=== PATIENT | female | born 1945 | race Caucasian/White ===

== ENCOUNTER 2018-12-06 11:58 | Emergency (ER) | payer MEDICARE ==
[2018-12-06] MEDS ORDERED: Sodium Chloride 0.9% 10 ML Syringe FLUSH PRN (12:02)
[2018-12-06] MEDS ORDERED: Propofol 200 MG/20 ML SDV IVPUSH ONE (12:02)
--- NOTE | 2018-12-06 12:52 | EDM.PDOC ---
ED HPI GENERAL MEDICAL PROBLEM - General Chief Complaint: Upper Extremity Injury/Pain Stated Complaint: FALL VIA NORTH Time Seen by Provider: 12/06/18 12:05 Source of Information: Reports: Patient, EMS History Limitations: Reports: No Limitations - History of Present Illness INITIAL COMMENTS - FREE TEXT/NARRATIVE: 73-year-old healthy female was coming out of the clinic which she stumbled on the sidewalk injuring her left arm. She has an obvious deformity and significant pain of the left elbow. Just a small abrasion on the right anterior knee, no bony tenderness of the leg and no other injury. Onset: Sudden Duration: Hour(s): (Within the last hour) Location: Reports: Upper Extremity, Right Associated Symptoms: Reports: No Other Symptoms Left Elbow Pain Score (Numeric/FACES): 7 - Related Data Allergies Allergy/AdvReac Type Severity Reaction Status Date / Time No Known Allergies Allergy Verified 01/01/16 06:54 Home Meds: Home Meds Aspirin 81 mg PO DAILY 12/27/15 [History] Azelastine [Astelin Nasal Soln] 2 spray NASBOTH DAILY 12/27/15 [History] Calcium Carb/Vitamin D3/Vit K1 [Calcium + Vit D & K Chew] 3 tab PO DAILY [History] Gluc Silva 2KCl/Chondr/Vit C/Lorenzo [Glucosamine-Chondr Complex] 2 tab PO DAILY 12/26 [History] Hydrochlorothiazide/Lisinopril [Lisinopril/HCTZ 20-12.5 MG] 12.5 - 20 mg PO DAILY 12/27/15 [History] Multivitamin [Multivitamins] 1 tab PO DAILY 12/27/15 [History] Omeprazole Magnesium [Prilosec Otc] 20 mg PO DAILY 12/27/15 [History] atorvaSTATin [Lipitor] 20 mg PO DAILY 12/27/15 [History] Past Medical History HEENT History: Reports: Allergic Rhinitis, Cataract, Impaired Vision, Other ( See Below) Other HEENT History: Amblyopia left eye Cardiovascular History: Reports: High Cholesterol, Hypertension Gastrointestinal History: Reports: Cholelithiasis, Colon Polyp, Hemorrhoids Genitourinary History: Reports: None Musculoskeletal History: Reports: Osteoarthritis Endocrine/Metabolic History: Reports: Osteopenia - Infectious Disease History Infectious Disease History: Reports: Chicken Pox, Measles, Mumps - Past Surgical History HEENT Surgical History: Reports: Oral Surgery Female Surgical History: Reports: Breast Biopsy Social & Family History - Tobacco Use Smoking Status *Q: Never Smoker - Caffeine Use Caffeine Use: Reports: Coffee Review of Systems - Review of Systems Review Of Systems: See Below Constitutional: Denies: Fever Respiratory: Denies: Shortness of Breath Cardiovascular: Denies: Chest Pain GI/Abdominal: Denies: Abdominal Pain Skin: Reports: Bruising (Some bruising is developing on the lateral aspect of the left elbow, and abrasion on the right lower leg) Neurological: Denies: Headache Psychiatric: Reports: No Symptoms ED EXAM, GENERAL - Physical Exam Exam: See Below Exam Limited By: No Limitations General Appearance: Alert, Mild Distress Head: Atraumatic Neck: Supple, Non-Tender Respiratory/Chest: Lungs Clear Cardiovascular: Regular Rate, Rhythm Extremities: Other (Patient has her left arm held in 90 with an obvious deformity at the elbow, there is posterior displacement of the olecranon at the elbow with overlying swelling and bruising. She can move her fingers and has a good pulse at the wrist.) Neurological: Alert, Oriented, No Motor/Sensory Deficits (Unable to test the strength of the left elbow due to the deformity and fracture) Skin Exam: Warm, Dry, Other (There is a superficial abrasion on the anterior aspect of the right gil[place]) Course - Vital Signs Last Recorded V/S: Last Vital Signs Temp 96.4 F 12/06/18 12:53 Pulse 75 12/06/18 13:34 Resp 14 12/06/18 13:34 BP 141/66 H 12/06/18 13:34 Pulse Ox 98 12/06/18 13:34 - Orders/Labs/Meds Orders: Active Orders 24 hr Category Date Time Status Saline Lock Insert [OM.PC] Routine Oth 12/06/18 12:02 Ordered Meds: Medications Discontinued Medications Generic Name Dose Route Start Last Admin Trade Name Freq PRN Reason Stop Dose Admin Propofol 100 mg 12/06/18 12:02 12/06/18 13:44 Diprivan 20 Ml IVPUSH 12/06/18 12:03 100 mg ONETIME ONE Administration Sodium Chloride 10 ml 12/06/18 12:02 12/06/18 13:44 Saline Flush FLUSH 10 ml ASDIRECTED PRN Administration Keep Vein Open - Re-Assessments/Exams Free Text/Narrative Re-Assessment/Exam: 12/06/18 16:11 An x-ray of the left elbow was obtained and shows posterior dislocation of the olecranon in relation of the distal humerus along with a fracture of the proximal ulna. The patient was then prepared for internal reduction of the left elbow fracture dislocation. After consent was signed, the patient was given 80 mg of IV propofol with the assistance of Dr. Limon of the hospitalist service. She obtained excellent sedation and the fracture was reduced, the left arm was placed in a long-arm posterior splint. She recovered well and a post reduction x -ray showed good anatomical alignment. These were sent to orthopedics at [facility], reviewed, and she will be rechecked in 2 days at the clinic. She was given 6 hydrocodone to use sparingly for extra pain control. Departure - Departure Time of Disposition: 15:03 Disposition: Home, Self-Care 01 Clinical Impression: Fracture dislocation of left elbow joint Qualifiers: Encounter type: initial encounter Fracture type: closed Qualified Code(s): S42.402A - Unspecified fracture of lower end of left humerus, initial encounter for closed fracture - Discharge Information Instructions: Olecranon Fracture Referrals: PCP,None [Primary Care Provider] - Forms: ED Department Discharge Care Plan Goals: Keep arm in splint, take Advil or Aleve for pain. Recheck with Andrei Gregory at the clinic on . Use stronger pain medication if needed. - My Orders Last 24 Hours: My Active Orders 12/06/18 12:02 Saline Lock Insert [OM.PC] Routine - Assessment/Plan Last 24 Hours: My Active Orders 12/06/18 12:02 Saline Lock Insert [OM.PC] Routine
--- NOTE | 2018-12-06 13:16 | CRLCR ---
INDICATION: Elbow injury. TECHNIQUE: Three views left elbow. COMPARISON: None. FINDINGS: Comminuted fracture of the proximal ulna/olecranon. Probable elbow dislocation as well, although this is incompletely imaged as patient positioning was suboptimal. Imaged portions of the radius and humerus demonstrate no evidence of fracture. IMPRESSION: Comminuted proximal ulnar fracture as above. Dictated by Baljinder Fisher MD @ Dec 06 2018 1:12PM Signed by Dr. Baljinder Fisher @ Dec 06 2018 1:14PM
--- NOTE | 2018-12-06 13:57 | CRLCR ---
INDICATION: Status post reduction COMPARISON: From earlier today at 1209 hours FINDINGS: The left elbow is examined with oblique and lateral views at 1249 hours. A true AP view was not obtained since there is a very limited ability to position the patient. During the interval, there has been closed reduction and splinting of the comminuted, oblique fracture of the proximal ulnar shaft with fracture fragments in near anatomic alignment. There is no sign of dislocation of the elbow, with anatomic alignment of the radial head and capitellum and of the olecranon and trochlea, given the limited imaging possible because of the splint. There is no evidence of fracture of the proximal radius or distal humerus. A definite joint effusion is not evident. The soft tissues are normal in appearance without sign of radio-opaque foreign body. No significant degenerative disease is seen. IMPRESSION: Satisfactory appearance status post close reduction casting of a comminuted oblique fracture of the proximal ulnar shaft. No evidence of dislocation or additional fracture on the limited views available. Dictated by Kit James MD @ Dec 06 2018 1:51PM Signed by Dr. Kit James @ Dec 06 2018 1:55PM
[2018-12-06 14:55] VITALS: BP 141/66
== END 2018-12-06 14:45 | disposition home or self-care (01) ==
LOC: JP.ED 11:58
DX: S52.202A Unspecified fracture of shaft of left ulna, initial encounter for closed fracture (principal); S42.402A Unspecified fracture of lower end of left humerus, initial encounter for closed fracture; I10 Essential (primary) hypertension; Z79.82 Long term (current) use of aspirin; Z79.899 Other long term (current) drug therapy; Z98.890 Other specified postprocedural states; W10.1XXA Fall (on)(from) sidewalk curb, initial encounter
CPT/HCPCS: 23655; 25535; 73070; 77063; 77067; 99152; 99283; J2704

== ENCOUNTER 2019-02-08 06:53 | Day surgery (SDC) | payer MEDICARE ==
[2019-02-08] MEDS ORDERED: Lactated Ringers 1,000 ML IV SCH (07:30)
[2019-02-08] MEDS ORDERED: fentaNYL 100 MCG/2 ML SDV ONE (07:53)
[2019-02-08] MEDS ORDERED: Midazolam 1 MG/ML 2 ML SDV ONE (07:53)
[2019-02-08] MEDS ORDERED: Propofol 200 MG/20 ML SDV ONE ×2 (07:53→09:12)
[2019-02-08] MEDS ORDERED: Ampicillin 2 GM in Sodium Chloride 0.9% 100 ML IV ONE (08:30)
[2019-02-08 10:19] VITALS: BP 114/60; PULSE 70
--- NOTE | 2019-02-08 15:59 | OR ---
DATE OF PROCEDURE: 02/08/2019 SURGEON: Pardeep Soto MD PREOPERATIVE DIAGNOSIS: History of colon polyps. POSTOPERATIVE DIAGNOSIS: Three small colon polyps, history of colon polyps. PROCEDURE PERFORMED: Colonoscopy to the cecum with biopsy resection of 3 small colon polyps, two in the cecum adjacent to each other sent to the laboratory as one specimen. ANESTHESIA: IV anesthesia with monitored anesthesia care. INDICATION: This 73-year-old white female is referred for a colonoscopy because of a history of colon polyps. Her last colonoscopic exam was done 3 years ago. I counseled her for the procedure including risks, alternatives, and she gave her informed consent to proceed. DESCRIPTION OF PROCEDURE: The patient was placed in the left lateral decubitus position. IV anesthesia was administered by the Anesthesia Service. Time-out was held. A rectal exam was performed, which was unremarkable. The flexible video Olympus colonoscope was introduced through her anus, up her rectum, out her colon, all the way to the cecum. En route, at the hepatic flexure, we saw a small polyp which was removed with a few bites of biopsy forceps. To reach the cecum, we had to apply some abdominal compression. In the cecum, we saw 2 polyps near each other. They were removed with the biopsy forceps and sent to the laboratory as one specimen. The scope was then slowly withdrawn examining the mucosa throughout. No additional mucosal abnormalities were noted. The scope was retroflexed in the rectum with the distal rectum appearing unremarkable. The scope was straightened and removed. She tolerated the procedure well. Pardeep Soto MD /[id number]
== END 2019-02-08 10:20 | disposition home or self-care (01) ==
LOC: JP.SDS 06:53
PROVIDERS: ATTEND Surgery
DX: Z12.11 Encounter for screening for malignant neoplasm of colon (principal); D12.0 Benign neoplasm of cecum; D12.3 Benign neoplasm of transverse colon; I10 Essential (primary) hypertension; E78.00 Pure hypercholesterolemia, unspecified; K21.9 Gastro-esophageal reflux disease without esophagitis; Z86.010 Personal history of colon polyps
CPT/HCPCS: 45380; J0290; J2250; J2704; J3010; J7030; J7120; 88305

== ENCOUNTER 2021-03-01 22:56 | Emergency (ER) | payer MEDICARE ==
[2021-03-01 23:33] VITALS: BP 172/100; PULSE 88
[2021-03-02] MEDS ORDERED: amLODIPine 5 MG Tab PO ONE (00:17)
--- NOTE | 2021-03-02 00:21 | EDM.PDOC ---
ED HPI GENERAL MEDICAL PROBLEM - General Chief Complaint: Cardiovascular Problem Stated Complaint: HIGH BP Time Seen by Provider: 03/01/21 23:07 Source of Information: Reports: Patient, Old Records History Limitations: Reports: No Limitations - History of Present Illness INITIAL COMMENTS - FREE TEXT/NARRATIVE: Dayanna is a 75-year-old female presenting to the ED with concerns about elevated blood pressure. Patient has been having slight increases in her blood pressure over the last several months. Her last visit with Dr. Sagastume was several weeks ago when she was found to have a systolic pressure of 146. He talked to her about monitoring it and over the last several days has been going up. Tonight she took her blood pressure this evening and it was in the 170s. She tried to go to sleep but then took it again it was in the 200s over 103 making her even more nervous and finally she decided to come in and get it checked. She denies any symptoms associated with this including headache, blurred vision, numbness or tingling, new weakness, chest pain, and shortness of breath. She was concerned that the elevated pressure give her a stroke. - Related Data Allergies Allergy/AdvReac Type Severity Reaction Status Date / Time ethinyl estradiol Allergy Cough Verified 03/01/21 23:08 [From Seasonale ()] levonorgestrel Allergy Cough Verified 03/01/21 23:08 [From Seasonale ()] Home Meds: Home Meds Aspirin 81 mg PO BEDTIME 12/27/15 [History] Azelastine [Astelin Nasal Soln] 2 spray NASBOTH BID PRN 12/27/15 [History] Calcium Carb/Vitamin D3/Vit K1 [Calcium + Vit D & K Chew] 3 tab PO DAILY 12/27/15 [History] Gluc Silva 2KCl/Chondr/Vit C/Lorenzo [Glucosamine-Chondr Complex] 2 tab PO DAILY 12/27/15 [History] Multivitamin [Multivitamins] 1 tab PO DAILY 12/27/15 [History] Omeprazole Magnesium [Prilosec Otc] 20 mg PO DAILY 12/27/15 [History] Ibuprofen 400 mg PO ASDIRECTED 02/07/19 [History] atorvaSTATin [Lipitor] 20 mg PO DAILY 02/07/19 [History] Lisinopril/Hydrochlorothiazide [Lisinopril-Hctz 20-12.5 mg Tab] 1 tab PO DAILY 03/01/21 [History] Loratadine [Claritin] 10 mg PO BEDTIME 03/01/21 [History] amLODIPine [Norvasc] 5 mg PO DAILY #30 tab 03/02/21 [Rx] Past Medical History HEENT History: Reports: Allergic Rhinitis, Cataract, Impaired Vision, Other (See Below) Other HEENT History: Amblyopia left eye Cardiovascular History: Reports: High Cholesterol, Hypertension Gastrointestinal History: Reports: Colon Polyp, GERD, Hemorrhoids Genitourinary History: Reports: None Musculoskeletal History: Reports: Osteoarthritis Endocrine/Metabolic History: Reports: Osteopenia - Infectious Disease History Infectious Disease History: Reports: Chicken Pox, Measles, Mumps - Past Surgical History HEENT Surgical History: Reports: Oral Surgery GI Surgical History: Reports: Cholecystectomy Female Surgical History: Reports: Breast Biopsy Endocrine Surgical History: Reports: None Musculoskeletal Surgical History: Reports: Other (See Below) Other Musculoskeletal Surgeries/Procedures:: left arm fracture Social & Family History - Family History Family Medical History: No Pertinent Family History - Tobacco Use Tobacco Use Status *Q: Never Tobacco User - Caffeine Use Caffeine Use: Reports: Coffee Other Caffeine Use: 1/2 to 1 cup in AM - Recreational Drug Use Recreational Drug Use: No ED ROS GENERAL - Review of Systems Review Of Systems: See Below Constitutional: Reports: No Symptoms HEENT: Reports: No Symptoms Respiratory: Reports: No Symptoms. Denies: Shortness of Breath Cardiovascular: Reports: Blood Pressure Problem. Denies: Chest Pain, Dyspnea on Exertion, Lightheadedness, Palpitations Endocrine: Reports: No Symptoms GI/Abdominal: Reports: No Symptoms : Reports: No Symptoms Musculoskeletal: Reports: No Symptoms Skin: Reports: No Symptoms Neurological: Denies: Dizziness, Headache, Numbness, Paresthesia, Tingling, Weakness Psychiatric: Reports: Anxiety Hematologic/Lymphatic: Reports: No Symptoms Immunologic: Reports: No Symptoms ED EXAM, GENERAL - Physical Exam Exam: See Below Exam Limited By: No Limitations General Appearance: Alert, No Apparent Distress Eye Exam: Bilateral Eye: EOMI, PERRL Head: Atraumatic, Normocephalic Neck: Normal Inspection, Supple, Full Range of Motion. No: Carotid Bruit Respiratory/Chest: No Respiratory Distress, Lungs Clear, Normal Breath Sounds Cardiovascular: Normal Peripheral Pulses, Regular Rate, Rhythm, No Murmur Peripheral Pulses: 2+: Radial (L), Radial (R) GI/Abdominal: Normal Bowel Sounds, Soft, Non-Tender Neurological: Alert, Oriented, Normal Cognition, No Motor/Sensory Deficits Psychiatric: Anxious Skin Exam: Warm, Dry, Intact, Normal Color Course - Vital Signs Last Recorded V/S: Last Vital Signs Temp 36.6 C 03/02/21 00:00 Pulse 88 03/02/21 00:00 Resp 19 03/02/21 00:00 BP 172/100 H 03/02/21 00:00 Pulse Ox 97 03/02/21 00:00 - Orders/Labs/Meds Meds: Medications Discontinued Medications Generic Name Dose Route Start Last Admin Trade Name Freq PRN Reason Stop Dose Admin Amlodipine Besylate 5 mg 03/02/21 00:17 Amlodipine 5 Mg Tab PO 03/02/21 00:18 ONETIME ONE - Re-Assessments/Exams Free Text/Narrative Re-Assessment/Exam: 03/02/21 00:24 Dayanna is obviously very nervous about her blood pressure being elevated today and the increase of her blood pressure over the last several months. She is concerned because she has been on the lisinopril hydrochlorothiazide combination for the last 15 years which has managed her blood pressure. Tonight she had cyclic blood pressures continue to rise due to likely to her anxiety but also has a baseline of being mildly hypertensive. I think it would be reasonable to add amlodipine 5 mg daily to her regimen. I instructed her only to take her blood pressure once a day to avoid the anxiety. At this time she is suitable for discharge home. She is in agreement with the plan and will follow up with Dr. Sagastume. Indications return to the ED were discussed. Departure - Departure Time of Disposition: 00:19 Disposition: Home, Self-Care 01 Clinical Impression: Essential hypertension Prescriptions: amLODIPine [Norvasc] 5 mg PO DAILY #30 tab Referrals: Baljinder Sagastume MD [Primary Care Provider] - Forms: ED Department Discharge Care Plan Goals: We are going to add amlodipine 5 mg daily to your medications. Please check your blood pressure only once a day over the next several weeks and follow-up with Dr. Sagastume if not improving. If you develop any symptoms that we talked about please return to the ED for reevaluation. Sepsis Event Note (ED) - Evaluation Sepsis Screening Result: No Definite Risk - Focused Exam Vital Signs: Vital Signs Temp Pulse Resp BP Pulse Ox 03/02/21 00:00 36.6 C 88 19 172/100 H 97 03/01/21 23:29 36.6 C 88 19 172/100 H 97 - Problem List & Annotations (1) Essential hypertension SNOMED Code(s): 89005529 Code(s): I10 - ESSENTIAL (PRIMARY) HYPERTENSION Status: Acute Priority: Low Current Visit: Yes - Problem List Review Problem List Initiated/Reviewed/Updated: Yes
== END 2021-03-02 00:30 | disposition home or self-care (01) ==
LOC: JP.ED 22:56
DX: I10 Essential (primary) hypertension (principal); E78.00 Pure hypercholesterolemia, unspecified; K21.9 Gastro-esophageal reflux disease without esophagitis; M19.90 Unspecified osteoarthritis, unspecified site; Z88.8 Allergy status to other drugs, medicaments and biological substances; Z79.82 Long term (current) use of aspirin; Z79.899 Other long term (current) drug therapy
CPT/HCPCS: 99283; A9270

== ENCOUNTER 2022-02-27 06:54 | Day surgery (SDC) | payer MEDICARE ==
[2022-02-27] MEDS ORDERED: Midazolam 1 MG/ML 2 ML SDV ONE (07:20)
[2022-02-27] MEDS ORDERED: fentaNYL 50 MCG/ML SDV ONE (07:20)
[2022-02-27] MEDS ORDERED: Propofol 200 MG/20 ML SDV ONE (07:21)
[2022-02-27] MEDS ORDERED: Lactated Ringers 1,000 ML IV SCH (07:30)
[2022-02-27 09:10] VITALS: BP 124/68; PULSE 77
== END 2022-02-27 09:22 | disposition home or self-care (01) ==
LOC: JP.SDS 06:54
PROVIDERS: ATTEND Student in an Organized Health Care Education/Training Program
DX: K63.5 Polyp of colon (principal); I10 Essential (primary) hypertension; K21.9 Gastro-esophageal reflux disease without esophagitis; Z86.010 Personal history of colon polyps
CPT/HCPCS: 45378; J2250; J2704; J3010; J7120